=== PATIENT | female | born 1995 | race Hispanic/Latino ===

== ENCOUNTER 2024-08-08 02:56 | Emergency (ER) | payer BC, MEDICAID ==
[~2024-08-08] VITALS: Ht 175.3 cm; Wt 80.7 kg
[2024-08-08 02:57] VITALS: TEMP 97.4
[2024-08-08] MEDS: LACTATED RINGERS 1000ML IV STA (04:20)
--- NOTE | 2024-08-08 04:20 | ERN ---
General Chief Complaint: Abdominal Pain in Stated Complaint: ABD CRAMPING Time Seen by MD: 04:03 Source: patient History of Present Illness Initial Comments 29-year-old female one when he weeks comes in because approximately five or 6 hours ago she noted abdominal pain bilateral lower quadrants and across the middle of her abdomen. The pain has been constant although every once in a while it increases and decreases in intensity and occasionally feels like a cramp. She also states that she feels like her abdomen is now hard during this time and she is not feeling her baby move as much as in the past. She has no other associated symptoms: No fever no chills no nausea no vomiting no diarrhea no change in urination. Allergies: Coded Allergies: No Known Drug Allergies (Unverified Allergy, Unknown, 08/08/24) Past Medical History Past Medical History: No Pertinent History Past Surgical History: Appendectomy Female( History) : 1 Constitutional: (-) chills, (-) diaphoresis, (-) fever, (-) malaise, (-) weakness, (-) other documentation EENTM: (-) eye pain, (-) blurred vision, (-) tearing, (-) double vision, (-) ear pain, (-) ear discharge, (-) nose pain, (-) nose congestion, (-) throat pain, (-) Throat swelling, (-) mouth pain, (-) tooth pain, (-) mouth swelling, (-) other documentation Respiratory: (-) cough, (-) orthopnea, (-) short of breath, (-) stridor, (-) wheezing, (-) other documentation Cardiovascular: (-) chest pain, (-) edema, (-) palpitations, (-) syncope, (-) dyspnea on exertion, (-) other documentation Gastrointestinal/Abdominal: (-) nausea, (-) vomiting, (-) diarrhea, (-) abdominal pain, (-) abdominal distention, (-) constipation, (-) rectal bleeding, (-) dark stool/melena, (-) other documentation Genitourinary: (-) vaginal discharge, (-) vaginal bleeding, (-) dysuria, (-) frequency, (-) hematuria, (-) pain, (-) other documentation Musculoskeletal: (-) Neck pain, (-) back pain, (-) Flank Pain, (-) joint pain, (-) joint swelling, (-) muscle pain, (-) muscle stiffness, (-) gout, (-) other documentation Skin: (-) laceration, (-) contusion, (-) abrasion, (-) abscess, (-) rash, (-) change in color, (-) change in hair, (-) change in nails, (-) diaphoresis, (-) dryness, (-) other documentation Neuro: (-) altered mental status, (-) headache, (-) syncope, (-) paralysis, (-) numbness, (-) seizure, (-) pre-existing deficit, (-) tremors, (-) weakness, (-) dizziness, (-) slurred speech, (-) vertigo, (-) other documentation Hematologic/Lymphatic: (-) anemia, (-) blood clots, (-) easy bleeding, (-) easy bruising, (-) swollen glands, (-) other documentation Physical Exam General Appearance: (+) no apparent distress Orientation: (+) alert Head/Face Trauma: No Eye: bilateral eye normal inspection, bilateral eye PERRL, bilateral eye EOMI Ear, Nose, Throat: (+) hearing grossly normal, (+) normal ENT inspection, (+) moist mucous membraine Neck: (+) normal inspection, (+) supple, (+) full range of motion Respiratory: (+) chest non-tender, (+) lungs clear, (+) well ventilated Heart: (+) regular, (+) no gallop Vascular: (+) no edema, (+) normal peripheral pulse Gastrointestinal: (+) soft, (+) non-tender, (+) bowel sound present Gastrointestinal Comment Bowel sounds are present though infrequent. Results Laboratory and Microbiology Lab and Micro Result Laboratory Tests Test 08/08/24 04:13 08/08/24 04:14 White Blood Count 13.1 K/uL (4.8-10.8) H Red Blood Count 4.35 MIL/uL (4.00-5.50) Hemoglobin 12.5 g/dL (12.0-16.0) Hematocrit 38.5 % (36-48) Mean Corpuscular Volume 88.5 fL (79-99) Mean Corpuscular Hemoglobin 28.7 pg (27.0-33.0) Mean Corpuscular Hemoglobin Concent 32.5 g/dL (32.0-36.0) Red Cell Distribution Width 13.2 % (11.0-15.5) Platelet Count 124 K/uL (130-400) L Mean Platelet Volume 13.5 fL (7.5-10.5) H Immature Granulocyte % (Auto) 1.9 % (0-1) H Neutrophils (%) (Auto) 85.8 % (40.0-77.0) H Lymphocytes (%) (Auto) 7.8 % (21.0-51.0) L Monocytes (%) (Auto) 3.7 % (3.0-13.0) Eosinophils (%) (Auto) 0.5 % (0.0-8.0) Basophils (%) (Auto) 0.3 % (0.0-5.0) Neutrophils # (Auto) 11.3 K/uL (1.8-7.7) H Lymphocytes # (Auto) 1.0 K/uL (1.0-4.8) Monocytes # (Auto) 0.5 K/uL (0.1-1.0) Eosinophils # (Auto) 0.06 K/uL (0.00-0.70) Basophils # (Auto) 0.04 K/uL (0.00-0.20) Absolute Immature Granulocyte (auto 0.25 K/uL (0-1) Nucleated Red Blood Cells 0.0 % (0.0-0.19) White Cell Morphology Comment See comments Sodium Level 136 mmol/L (136-145) Potassium Level 3.9 mmol/L (3.5-5.1) Chloride Level 103 mmol/L (101-111) Carbon Dioxide Level 24 mmol/L (21-32) Blood Urea Nitrogen 7 mg/dL (7-18) Creatinine 0.6 mg/dL (0.5-1.0) Glomerular Filtration Rate Calc 126 mL/min (>90) Random Glucose 87 mg/dL (70-105) Total Calcium 8.8 mg/dL (8.5-10.1) Total Bilirubin 0.3 mg/dL (0.2-1.0) Direct Bilirubin 0.1 mg/dL (0.0-0.3) Aspartate Amino Transf (AST/SGOT) 18 U/L (10-37) Alanine Aminotransferase (ALT/SGPT) 17 U/L (12-78) Alkaline Phosphatase 108 U/L (50-136) Total Protein 7.1 g/dL (6.0-8.3) Albumin 2.7 g/dL (3.5-5.0) L Urine Color LIGHT-YELLOW (YELLOW) Urine Appearance CLEAR (CLEAR) Urine pH 6.5 (5.0-8.0) Urine Specific Spencer 1.009 (1.001-1.031) Urine Protein NEGATIVE mg/dL (NEGATIVE) Urine Glucose (UA) NEGATIVE mg/dL (NEGATIVE) Urine Ketones 10 mg/dL (NEGATIVE) H Urine Occult Blood NEGATIVE (NEGATIVE) Urine Nitrate NEGATIVE (NEGATIVE) Urine Bilirubin NEGATIVE mg/dL (NEGATIVE) Urine Urobilinogen 0.2 mg/dL (0.2-1.0) Urine Leukocyte Esterase NEGATIVE [place]/uL Urine RBC 0-1 /HPF (0-1) Urine WBC 0-1 /HPF (0-1) Urine Squamous Epithelial Cells MOD /HPF (0-2) Urine Bacteria RARE /HPF (None Seen) MDM Patient's symptoms could be explained by a variety of conditions including premature contractions, premature labor, [place] contractures, pre eclampsia, intra-abdominal disease, round ligament pain, UTI. I will start with a transvaginal ultrasound, CBC CMP and UA. Patient's CBC shows elevated leukocytes and neutrophils and immature granulocytes but all of these are within normal ranges for . Patient does not have protein in her urine and her systolic blood pressure has been less than 140. Also patient's liver enzymes are normal. So I do not have a high suspicion for preeclampsia or HELLP syndrome right now. Patient's urine analysis is negative for infection and protein. Transvaginal ultrasound shows healthy fetus at an age of 32 weeks and six days. My suspicion is that the patient has round ligament pain. We talked a bit about the symptoms for round ligament pain and what can or can not be done to help it. Currently the patient states her pain is manageable and she is glad that there was nothing serious going on. She will follow up with her OB Gyne doctor. I warned her about signs of preeclampsia. ED Course Orders Procedure Category Date Status Time Lactated Ringers PHA 08/08/24 Complete 1000ml (Lactated 04:03 Basic Metabolic Panel LAB 08/08/24 Complete 04:03 Cbc With Differential LAB 08/08/24 Complete 04:03 Urinalysis Profile LAB 08/08/24 Complete 04:03 Hepatic Function Panel LAB 08/08/24 Complete 04:03 Us Ob >14 Weeks US 08/08/24 Taken 04:03 Current Medications Medications (Trade) Dose Ordered Sig/Rex Route PRN Reason Start Time Stop Time Status Last Admin Dose Admin Lactated Ringer's (Lactated Ringers 1000ml) 1,000 ml BOLUS STAT IV 08/08/24 04:03 08/08/24 04:14 DC 08/08/24 04:20 Vital Signs Date Time Temp Pulse Resp B/P (MAP) Pulse Ox O2 Delivery O2 Flow Rate FiO2 08/08/24 04:21 72 16 124/81 99 Room Air* 0 21 08/08/24 02:57 97.3 84 16 139/89 100 Room Air DX & DISP Disposition: Discharge Departure Impression: Primary Impression: Round ligament pain Condition: Stable Additional Instructions: Please return if you start to have headaches or of photophobia or if you notice that your blood pressure is really high as these maybe signs of preeclampsia HELLP syndrome. 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 Referrals: SELF,REFERRAL (PCP) BERE ISRAEL MD August 08, 2024 04:20
[2024-08-08 04:22] LABS: BASOPHILS # (AUTO) 0.04 K/uL (0.00-0.20); BASOPHILS % (AUTO) 0.3 % (0.0-5.0); EOSINOPHILS # (AUTO) 0.06 K/uL (0.00-0.70); EOSINOPHILS % (AUTO) 0.5 % (0.0-8.0); HEMATOCRIT 38.5 % (36-48); IMMATURE GRANULOCYTE ABSOLUTE 0.25 K/uL (0-1); LYMPHOCYTES % (AUTO) 7.8 % (21.0-51.0); MEAN CORPUSCULAR HEMOGLOBIN 28.7 pg (27.0-33.0); MEAN CORPUSCULAR HGB CONC 32.5 g/dL (32.0-36.0); MEAN CORPUSCULAR VOLUME 88.5 fL (79-99); MONOCYTES # (AUTO) 0.5 K/uL (0.1-1.0); MONOCYTES % (AUTO) 3.7 % (3.0-13.0); NEUTROPHILS # (AUTO) 11.3 K/uL (1.8-7.7); NEUTROPHILS % (AUTO) 85.8 % (40.0-77.0); PLATELET COUNT (AUTO) 124 K/uL (130-400); RED BLOOD CELL COUNT(AUTO) 4.35 MIL/uL (4.00-5.50); RED CELL DISTRIBUTION WIDTH 13.2 % (11.0-15.5); WHITE BLOOD COUNT (AUTO) 13.1 K/uL (4.8-10.8)
[2024-08-08 04:31] LABS: APPEARANCE,URINE CLEAR (CLEAR); BILIRUBIN,URINE NEGATIVE (NEGATIVE); COLOR,URINE LIGHT-YELLOW (YELLOW); GLUCOSE, URINE (UA) NEGATIVE (NEGATIVE); KETONES,URINE 10 mg/dL (NEGATIVE); LEUKOCYTE ESTERASE ,URINE NEGATIVE Leu/uL (NEGATIVE); NITRATE,URINE NEGATIVE (NEGATIVE); OCCULT BLOOD,URINE NEGATIVE (NEGATIVE); PH,URINE 6.5 (5.0-8.0); PROTEIN,URINE NEGATIVE (NEGATIVE); UROBILINOGEN,URINE 0.2 mg/dL (0.2-1.0)
[2024-08-08 04:32] LABS: ADD UA MICROSCOPIC YES
[2024-08-08 04:33] LABS: BACTERIA,URINE RARE /HPF (None Seen); RBC,URINE 0-1 /HPF (0-1); SQUAMOUS EPITHELIAL CELL,UR MOD /HPF (0-2); WBC,URINE 0-1 /HPF (0-1)
[2024-08-08 04:41] LABS: ALBUMIN 2.7 g/dL (3.5-5.0); BILIRUBIN,DIRECT 0.1 mg/dL (0.0-0.3); BILIRUBIN,TOTAL 0.3 mg/dL (0.2-1.0); CREATININE 0.6 mg/dL (0.5-1.0); POTASSIUM 3.9 mmol/L (3.5-5.1); TOTAL PROTEIN, SERUM 7.1 g/dL (6.0-8.3)
[2024-08-08 06:09] VITALS: BP 102/53; PULSE 70; RESP 18; O2SAT 98
--- NOTE | 2024-08-08 07:57 | HMCIMG ---
US OB >14 WEEKS HISTORY: Abdominal pain COMPARISON: None TECHNIQUE: ultrasound study was performed. FINDINGS: There is single intrauterine gestation with estimated gestational age of 32 weeks. heart rate is 153 beats per minute. The fetus is in cephalic presentation with oblique lie. weight is estimated to be 2017 7 grams. Amniotic fluid volume is 9.41 centimeter. The placenta is located anteriorly and bilateral No evidence of placenta previa is seen. There is no evidence of nuchal cord. IMPRESSION: 1. There is single intrauterine gestation with estimated gestational age of 32 weeks. heart rate is 153 beats per minute.
== END 2024-08-08 06:20 | disposition home or self-care (01) ==
LOC: EDH 02:56
DX: O26.893 Other specified pregnancy related conditions, third trimester (principal); R10.2 Pelvic and perineal pain; Z3A.32 32 weeks gestation of pregnancy; Z90.49 Acquired absence of other specified parts of digestive tract
CPT/HCPCS: 99284; 96360; 76805; 96361; 80076; 80048; 85025; 81001; 36415; J7120